=== PATIENT | female | born 1985 | race Caucasian/White ===

== ENCOUNTER 2022-07-11 19:24 | Emergency (ER) | payer OTHER ==
[~2022-07-11] VITALS: Ht 160 cm; Wt 111.1 kg
--- NOTE | 2022-07-11 20:12 | NUR ---
BIBS. UPPER ABD PAIN W/ NAUSEA, VOMITING AND DIARRHEA X TUESDAY. PT A/OX4. TOLERATING R/A WELL WITH NO RESP DISTRESS. SAFETY MEASURES IN PLACE.
--- NOTE | 2022-07-11 21:14 | NUR ---
DR. ECTOR WHITE AT PT'S BEDSIDE FOR EVAL
[2022-07-11 21:25] LABS: BILIRUBIN,URINE NEGATIVE (NEGATIVE); COLOR,URINE YELLOW (YELLOW); LEUKOCYTE ESTERASE ,URINE NEGATIVE (NEGATIVE); NITRITE, URINE NEGATIVE (NEGATIVE); PH,URINE 5.5 (5.0-8.0); PROTEIN,URINE TRACE mg/dl (NEGATIVE); UGLUCOSE NEGATIVE (NEGATIVE); UROBILINOGEN,URINE 0.2 EU/dL (0.2)
[2022-07-11] MEDS ORDERED: ONDANSETRON HCL/PF 4 MG/2 ML VIAL ONE (21:56)
[2022-07-11] MEDS ORDERED: MORPHINE SULFATE INJ 4 MG/ML DISP.SYRIN ONE (21:57)
[2022-07-11] MEDS ORDERED: FAMOTIDINE/PF INJ 20 MG/2 ML VIAL IV ONE ×2 (21:58→22:00)
[2022-07-11] MEDS ORDERED: MORPHINE SULFATE INJ 2 MG/ML DISP.SYRIN IV ONE (22:00)
[2022-07-11] MEDS ORDERED: IV NS 0.9% 1,000 ML BAG IV ONE (22:00)
[2022-07-11] MEDS ORDERED: ONDANSETRON HCL/PF 4 MG/2 ML VIAL IVP ONE (22:00)
--- NOTE | 2022-07-11 22:13 | NUR ---
RAC #18G S/L BLOOD COLLECTED AND SENT TO LAB
[2022-07-11 22:37] LABS: BASOPHILS # (AUTO) 0.1 K/uL (0.0-0.2); BASOPHILS % (AUTO) 1.3 % (0.0-2.0); EOSINOPHILS % (AUTO) 3.2 % (0.0-6.0); HEMATOCRIT 43 % (33-45); HEMOGLOBIN 13.9 g/dL (11.5-14.8); LYMPHOCYTES # (AUTO) 0.7 K/uL (0.8-4.8); LYMPHOCYTES % (AUTO) 12.2 % (20.0-44.0); MEAN CORPUSCULAR HGB CONC 32 g/dl (31.0-36.0); MEAN CORPUSCULAR VOLUME 82 fL (82-100); MONOCYTES # (AUTO) 0.5 K/uL (0.1-1.30); MONOCYTES % (AUTO) 9.1 % (2.0-12.0); NEUTROPHILS # (AUTO) 4.4 K/uL (1.8-8.9); NEUTROPHILS % (AUTO) 74.2 % (43.0-81.0); PLATELET COUNT (AUTO) 282 K/uL (150-450); RED BLOOD CELL COUNT(AUTO) 5.23 MIL/uL (4.0-5.2); WHITE BLOOD COUNT (AUTO) 5.9 K/uL (4.3-11.0)
[2022-07-11 22:37] LABS: BACTERIA,URINE None seen /HPF (None Seen); MUCUS,URINE Many /LPF (None Seen); RBC,URINE 0-2 /HPF (0-2); WBC,URINE 0-2 /HPF (0-3)
--- NOTE | 2022-07-11 22:44 | NUR ---
PT RETURNED TO ER BED [address]
[2022-07-11 23:01] LABS: CALCIUM, SERUM 8.5 mg/dL (8.5-10.1); CREATININE 0.8 mg/dL (0.6-1.3); POTASSIUM 3.1 mmol/L (3.5-5.1)
[2022-07-11 23:09] LABS: ALBUMIN 3.4 g/dL (3.4-5.0); BILIRUBIN,DIRECT 0.1 mg/dL (0.0-0.2); BILIRUBIN,TOTAL 0.3 mg/dL (0.2-1.0); TOTAL PROTEIN, SERUM 7.8 g/dL (6.4-8.2)
[2022-07-11] MEDS ORDERED: POTASSIUM CHLORIDE 20 MEQ TAB.PRT.SR PO ONE ×2 (23:30→23:37)
[2022-07-11] MEDS ORDERED: ONDA4TAB5 PO (23:32)
[2022-07-11] MEDS ORDERED: POTA20TA83 PO (23:32)
[2022-07-11 23:53] VITALS: BP 122/79
--- NOTE | 2022-07-11 23:53 | NUR ---
IV removed. Catheter intact and site benign. Pressure and 4x4 applied to site. No bleeding noted. Written and verbal after care instructions given. Patient verbalizes understanding of instruction. Awaiting for to continuous pickling line pickler pt for DC
--- NOTE | 2022-07-12 00:02 | NUR ---
Patient discharged to home in stable condition and picked up by . Written and verbal after care instructions given. Patient verbalizes understanding of instruction.
[2022-07-12 03:42] LABS: BASOPHILS % (MANUAL) 0 % (0.0-2.0); EOSINOPHILS % (MANUAL) 5 % (0-4); LYMPHOCYTES % (MANUAL) 13 % (16-48); MONOCYTES % (MANUAL) 10 % (0-11.0); NEUTROPHILS % (MANUAL) 72 (42-76)
== END 2022-07-12 00:06 | disposition home or self-care (01) ==
LOC: ER 19:28
DX: K29.70 Gastritis, unspecified, without bleeding (principal); E87.6 Hypokalemia; Z86.73 Personal history of transient ischemic attack (TIA), and cerebral infarction without residual deficits; Z98.890 Other specified postprocedural states
CPT/HCPCS: 99285; 74176; 96374; 96375; 96361; 85025; 80048; 83690; 80076; 84703; 81001; 36415; 85007; J2270; J3490; J2405; J7030

== ENCOUNTER 2022-09-29 18:09 | Emergency (ER) | payer OTHER ==
[~2022-09-29] VITALS: Ht 160 cm; Wt 100.7 kg
[~2022-09-29 18:09] MED LIST: ONDA4TAB5 PO; POTA20TA83 PO
--- NOTE | 2022-09-29 18:09 | NUR ---
BIBS FOR LEFT SIDED WEAKNESS AND LEFT ARM NUMBNESS. [facility] TIME 1730. HISTORY OF STROKE. A/O X 3, ABLE TO MAKE NEEDS KNOWN, TOLERATING WELL ON ROOM AIR.
--- NOTE | 2022-09-29 18:28 | NUR ---
accucheck 80
--- NOTE | 2022-09-29 18:28 | NUR ---
weight 222.6 lbs via bed scale
--- NOTE | 2022-09-29 18:29 | NUR ---
CALLED CODE STROKE.
--- NOTE | 2022-09-29 18:30 | NUR ---
BLOOD SAMPLES OBTAINED
--- NOTE | 2022-09-29 18:32 | NUR ---
PT TO CT VIA ACLS PROTOCALS.
[2022-09-29 18:34] LABS: BASOPHILS % (AUTO) 0.4 % (0.0-2.0); EOSINOPHILS % (AUTO) 3.7 % (0.0-6.0); HEMATOCRIT 41 % (33-45); HEMOGLOBIN 13.2 g/dL (11.5-14.8); LYMPHOCYTES # (AUTO) 2.4 K/uL (0.8-4.8); LYMPHOCYTES % (AUTO) 29.1 % (20.0-44.0); MEAN CORPUSCULAR HGB CONC 33 g/dl (31.0-36.0); MEAN CORPUSCULAR VOLUME 83 fL (82-100); MONOCYTES # (AUTO) 0.7 K/uL (0.1-1.30); MONOCYTES % (AUTO) 7.8 % (2.0-12.0); PLATELET COUNT (AUTO) 318 K/uL (150-450); WHITE BLOOD COUNT (AUTO) 8.4 K/uL (4.3-11.0)
--- NOTE | 2022-09-29 18:34 | NUR ---
CALLED [facility] [phone] C[place]AND MULLER
[2022-09-29] MEDS ORDERED: CT SWABBABLE VALVE TRANS SET 1 EA INFUS.SET MC ONE (18:37)
[2022-09-29] MEDS ORDERED: IV NS 0.9% 250 ML IV ONE (18:37)
[2022-09-29] MEDS ORDERED: IOHEXOL-350 100 ML VIAL IV ONE (18:37)
[2022-09-29 18:44] LABS: CARBON DIOXIDE 23 mmol/L (21-32); CHLORIDE 105 mmol/L (98-107); CREATININE 0.9 mg/dL (0.6-1.3); GLUCOSE 96 mg/dL (74-106); POTASSIUM 3.5 mmol/L (3.5-5.1); SODIUM SERUM 136 mmol/L (136-145); UREA NITROGEN, BLOOD 20 mg/dL (7-18)
--- NOTE | 2022-09-29 18:49 | NUR ---
PT BACK FROM CT WITH ACLS PROTOCALS.
--- NOTE | 2022-09-29 19:02 | NUR ---
PT SPOKE WITH NEUROLOGIST DR MULLER VIA VIDEO CALL. RECOMMENDED NO THROMBOLYTICS DUE TO UNCLEAR LAST KNOWN WELL TIME
--- NOTE | 2022-09-29 19:03 | NUR ---
PATIENT STATED THE LEFT SIDE OF HER FACE HAS BEEN WEAK FOR THE PAST 5 DAYS WHILE THE LEFT LEG HAS BEEN WEAK SINCE ABOUT 3 PM
[2022-09-29] MEDS ORDERED: ASPIRIN 325 MG TABLET ONE (19:05)
--- NOTE | 2022-09-29 19:18 | NUR ---
COVID SWAB OBTAINED
[2022-09-29] MEDS ORDERED: ASPIRIN 325 MG TABLET PO ONE (19:30)
--- NOTE | 2022-09-29 20:59 | NUR ---
GOGO RIDER: [phone]
--- NOTE | 2022-09-29 21:13 | NUR ---
SPOKE TO FAHEEM THE AUTO TIRE RECAPPER . PT IS GOING TO BE TRANSFERRED TO [facility]. FAXED CLINICALS TO [phone]
--- NOTE | 2022-09-29 22:46 | NUR ---
PLACED MULTIPLE CALLS TO DR CARUSO W/ NO ANSWER
--- NOTE | 2022-09-29 22:51 | NUR ---
AUDIE HECTOR ON THE PHONE WITH DR CARUSO
--- NOTE | 2022-09-30 00:16 | NUR ---
SPOKE TO FAHEEM, THE INTERNATIONAL SALES MANAGER. SHE HAS SUBMITTED THE INFO AND WAITING FOR ACCEPTANCE.
--- NOTE | 2022-09-30 01:19 | NUR ---
CALL FROM FAHAD AT [facility]: PT WILL GO TO [facility] ER TELE BED. # FOR REPORT: [phone]
--- NOTE | 2022-09-30 01:32 | NUR ---
[facility] ETA: 0330, ALS
--- NOTE | 2022-09-30 01:45 | NUR ---
REPORT GIVEN TO VICKI CHARGE NURSE AT [facility] ER
--- NOTE | 2022-09-30 03:06 | NUR ---
ASSITED PT AMBULATING TO THE BATHROOM
[2022-09-30 04:10] VITALS: BP 124/83
--- NOTE | 2022-09-30 04:14 | NUR ---
[facility] AT BED SIDE TO CUSTOMER SECURITY CLERK THE PT
== END 2022-09-30 04:24 | disposition short-term general hospital (02) ==
LOC: ER 18:20
DX: R20.0 Anesthesia of skin (principal); Z79.899 Other long term (current) drug therapy; Z20.822 Contact with and (suspected) exposure to COVID-19
CPT/HCPCS: 99291; 70498; 71045; 87426; 93005; 70496; 85025; 80048; 36415; 84484; 85730; 87081; 82962; 70450; J7050; Q9967; C9803

== ENCOUNTER 2023-04-11 15:04 | Emergency (ER) | payer OTHER ==
[~2023-04-11] VITALS: Ht 160 cm; Wt 93.9 kg
[2023-04-11] MEDS ORDERED: ONDANSETRON HCL/PF 4 MG/2 ML VIAL IVP ONE (16:30)
[2023-04-11] MEDS ORDERED: IV NS 0.9% 1,000 ML BAG IV ONE (16:30)
[2023-04-11] MEDS ORDERED: MORPHINE SULFATE INJ 2 MG/ML DISP.SYRIN IV ONE (16:30)
[2023-04-11] MEDS ORDERED: ONDANSETRON HCL/PF 4 MG/2 ML VIAL ONE (16:39)
[2023-04-11] MEDS ORDERED: MORPHINE SULFATE INJ 2 MG/ML DISP.SYRIN ONE (16:39)
[2023-04-11 16:48] LABS: BASOPHILS % (AUTO) 0.2 % (0.0-2.0); EOSINOPHILS # (AUTO) 0.1 K/uL (0.0-0.7); EOSINOPHILS % (AUTO) 1.3 % (0.0-6.0); HEMATOCRIT 42 % (33-45); HEMOGLOBIN 13.8 g/dL (11.5-14.8); LYMPHOCYTES # (AUTO) 1.2 K/uL (0.8-4.8); MEAN CORPUSCULAR HEMOGLOBIN 28 PG (26.0-33.0); MEAN CORPUSCULAR HGB CONC 33 g/dl (31.0-36.0); MEAN CORPUSCULAR VOLUME 84 fL (82-100); MONOCYTES # (AUTO) 0.3 K/uL (0.1-1.30); MONOCYTES % (AUTO) 3.9 % (2.0-12.0); NEUTROPHILS # (AUTO) 7.3 K/uL (1.8-8.9); NEUTROPHILS % (AUTO) 81.6 % (43.0-81.0); PLATELET COUNT (AUTO) 319 K/uL (150-450); RED BLOOD CELL COUNT(AUTO) 4.98 MIL/uL (4.0-5.2); RED CELL DISTRIBUTION WIDTH 13.6 % (11.5-15.0); WHITE BLOOD COUNT (AUTO) 8.9 K/uL (4.3-11.0)
[2023-04-11 17:00] LABS: CALCIUM, SERUM 8.4 mg/dL (8.5-10.1); CREATININE 0.6 mg/dL (0.6-1.3); POTASSIUM 3.7 mmol/L (3.5-5.1)
[2023-04-11 17:05] LABS: ALBUMIN 3.6 g/dL (3.4-5.0); BILIRUBIN,DIRECT 0.1 mg/dL (0.0-0.2); BILIRUBIN,TOTAL 0.6 mg/dL (0.2-1.0); TOTAL PROTEIN, SERUM 7.8 g/dL (6.4-8.2)
[2023-04-11 17:27] LABS: APPEARANCE,URINE CLEAR (CLEAR); BILIRUBIN,URINE 1+ (NEGATIVE); BLOOD, URINE NEGATIVE Ery/uL (NEGATIVE); COLOR,URINE YELLOW (YELLOW); KETONES,URINE NEGATIVE (NEGATIVE); LEUKOCYTE ESTERASE ,URINE NEGATIVE (NEGATIVE); NITRITE, URINE NEGATIVE (NEGATIVE); PROTEIN,URINE TRACE mg/dl (NEGATIVE); UGLUCOSE NEGATIVE (NEGATIVE); UROBILINOGEN,URINE 0.2 EU/dL (0.2)
[2023-04-11 17:55] LABS: PREGNANCY TEST URINE QUAL NEGATIVE (NEGATIVE)
[2023-04-11 17:57] LABS: ADD URINE CULTURE NO; BACTERIA,URINE RARE /HPF (None Seen); RBC,URINE 0-2 /HPF (0-2); WBC,URINE 0-2 /HPF (0-3)
[2023-04-11 17:58] LABS: MUCUS,URINE Few /LPF (None Seen)
[2023-04-11] MEDS ORDERED: IV NS 0.9% 250 ML IV ONE (18:06)
[2023-04-11] MEDS ORDERED: IOHEXOL-300 100 ML VIAL IV ONE (18:06)
[2023-04-11] MEDS ORDERED: OMEP20TA5 PO (19:40)
[2023-04-11] MEDS ORDERED: ONDA4TAB11 PO (19:40)
[2023-04-11 20:16] VITALS: BP 105/72; TEMP 98; O2SAT 99
== END 2023-04-11 19:45 | disposition home or self-care (01) ==
LOC: ER 15:07
DX: R10.11 Right upper quadrant pain (principal); R11.10 Vomiting, unspecified; Z90.49 Acquired absence of other specified parts of digestive tract
CPT/HCPCS: 99285; 74177; 96374; 71045; 96361; 96375; 85025; 80048; 83690; 80076; 84703; 81001; 36415; J2405; J7030; J7050; J2270; Q9967

== ENCOUNTER 2024-02-23 23:32 | Emergency (ER) | payer OTHER ==
[~2024-02-23] VITALS: Ht 167.6 cm; Wt 74.8 kg
[~2024-02-23 23:32] MED LIST changes: +OMEP20TA5 PO; +ONDA4TAB11 PO
[2024-02-24] MEDS: LIDOCAINE HCL/PF 1% 30 ML VIAL TP ONE (01:00)
[2024-02-24 02:25] VITALS: BP 131/86; TEMP 98.6; O2SAT 99
== END 2024-02-24 02:26 | disposition home or self-care (01) ==
LOC: ER 23:38
DX: L02.511 Cutaneous abscess of right hand (principal); Z86.73 Personal history of transient ischemic attack (TIA), and cerebral infarction without residual deficits; Z79.899 Other long term (current) drug therapy
CPT/HCPCS: 10140; 99284; J3490

== ENCOUNTER 2024-06-11 08:56 | Emergency (ER) | payer OTHER ==
[~2024-06-11] VITALS: Ht 157.5 cm; Wt 75.7 kg
[2024-06-11] MEDS ORDERED: MOXI3DRO EACHEYE (09:27)
[2024-06-11 09:37] VITALS: BP 138/82; TEMP 98.4; O2SAT 100
== END 2024-06-11 09:37 | disposition home or self-care (01) ==
LOC: ER 09:04
DX: H00.015 Hordeolum externum left lower eyelid (principal); H57.12 Ocular pain, left eye